=== PATIENT | female | born 1985 | race African-American/Black ===

== ENCOUNTER 2017-11-17 15:08 | Emergency (ER) | payer OTHER ==
[2017-11-17 15:21] VITALS: BP 123/82; PULSE 96; TEMP 99.6; BMI 45.6
--- NOTE | 2017-11-17 15:44 | PDOC ---
History of Present Illness - General Chief Complaint: Eye Problem Stated Complaint: Eye Problem Time Seen by Provider: 11/17/17 15:36 History Source: Patient Exam Limitations: Clinical Condition - History of Present Illness Initial Comments: 11/17/17 15:44 Patient with no significant past medical history present with complain of redness and left eye with discharge in left eye since yesterday. Denies blurry vision or change in vision. Denies contact lens use. She denies trauma injury to eye. Report no other symptoms Timing/Duration: 24 hours Past History - Past Medical History Allergies/Adverse Reactions: Allergies Allergy/AdvReac Type Severity Reaction Status Date / Time No Known Allergies Allergy Verified 11/17/17 15:18 Home Medications: Ambulatory Orders Metformin HCl [Glucophage] 1,000 mg PO BID 09/18/15 Aspirin Coated [Ecotrin -] 81 mg PO DAILY #30 tablet.ec 09/20/15 Atorvastatin Ca [Lipitor] 80 mg PO HS #60 tablet 09/20/15 Insulin (Novolog) [Novolog] See Protocol SQ ACHS #1 vial 09/20/15 Ofloxacin 0.3% Ophth Soln [Ocuflox -] 2 drop OP TID 5 Days #1 bottle 11/17/17 Asthma: No Cancer: No Cardiac Disorders: No COPD: No Diabetes: Yes (since 2010) HTN: Yes Seizures: No Thyroid Disease: No - Surgical History Abdominal Surgery: Yes - Reproductive History (#): 4 Para: 1 Cervical CA: No Dysfunctional Uterine Bleeding: No Ectopic : No Endometrial CA: No Polycystic Ovaries: No Therapeutic (s) & number: Yes (1) Tubal Ligation: No Spontaneous : 1 - Immunization History Immunization Up to Date: Yes - Suicide/Smoking/Psychosocial Hx Smoking Status: No Smoking History: Never smoked Have you smoked in the past 12 months: No Number of Cigarettes Smoked Daily: 0 Hx Alcohol Use: No Drug/Substance Use Hx: No Substance Use Type: None Hx Substance Use Treatment: No Review of Systems - Review of Systems Able to Perform ROS?: Yes Is the patient limited Setswana proficient: No Constitutional: No: Chills, Diaphoresis, Fever, Loss of Appetite, Malaise, Night Sweats, Weakness, Weight Stable, Unintentional Wgt. Loss, Unexplained wgt Loss, Other HEENTM: Yes: See HPI, Tearing, Other (redness in left eye). No: Eye Pain, Blurred Vision, Recent change in vision, Double Vision, Cataracts, Ear Pain, Ocular Prothesis, Ear Discharge, Nose Pain, Nose Congestion, Tinnitus, Nose Bleeding, Hearing Loss, Throat Pain, Throat Swelling, Mouth Pain, Dental Problems, Difficulty Swallowing, Mouth Swelling Respiratory: No: Cough, Orthopnea, Shortness of Breath, SOB with Exertion, SOB at Rest, Stridor, Wheezing, Productive cough, Hemoptysis, Other Cardiac (ROS): No: Chest Pain, Edema, Irregular Heart Rate, Lightheadedness, Palpitations, Syncope, Chest Tightness, Other ABD/GI: No: Abdominal Distended, Abd. Pain w/ defecation, Blood Streaked Bowels , Constipated, Diarrhea, Difficulty Swallowing, Nausea, Poor Appetite, Poor Fluid Intake, Rectal Bleeding, Vomiting, Indigestion, Abdominal cramping, Tarry Stools, Other Musculoskeletal: No: Back Pain, Gout, Joint Pain, Joint Swelling, Muscle Pain, Muscle Weakness, Neck Pain, Joint Stiffness, Other Integumentary: No: Bruising, Change in Color, Change in Hair/Nails, Dryness, Erythema, Flushing, Lesions, Lumps, Pallor, Pruritus, Rash, Sweating, Other Neurological: No: Headache, Numbness, Paresthesia, Pre-Existing Deficit, Seizure , Tingling, Tremors, Weakness, Unsteady Gait, Ataxia, Dizziness, Other All Other Systems: Reviewed and Negative *Physical Exam - Vital Signs Last Vital Signs Temp Pulse Resp BP Pulse Ox 99.6 F 96 H 20 123/82 100 11/17/17 15:18 11/17/17 15:18 11/17/17 15:18 11/17/17 15:18 11/17/17 15:18 - Physical Exam Comments: 11/17/17 15:46 GENERAL: Well developed, well nourished. Awake and alert. No acute distress. HEENT: Mildly injected left conjunctiva.Normocephalic, atraumatic. PERRLA, EOMI. No right conjunctival pallor. Sclera are non-icteric. Moist mucous membranes. Oropharynx is clear. NECK: Supple. Full ROM. No JVD. Carotid pulses 2+ and symmetric, without bruits. No thyromegaly. No lymphadenopathy. CARDIOVASCULAR: Regular rate and rhythm. No murmurs, rubs, or gallops. Distal pulses are 2+ and symmetric. PULMONARY: No evidence of respiratory distress. Lungs clear to auscultation bilaterally. No wheezing, rales or rhonchi. ABDOMINAL: Soft. Non-tender. Non-distended. No rebound or guarding. No organomegaly. Normoactive bowel sounds. MUSCULOSKELETAL Normal range of motion at all joints. No bony deformities or tenderness. No CVA tenderness. EXTREMITIES: No cyanosis. No clubbing. No edema. No calf tenderness. SKIN: Warm and dry. Normal capillary refill. No rashes. No jaundice. NEUROLOGICAL: Alert, awake, appropriate. Cranial nerves 2-12 intact. No deficits to light touch and temperature in face, upper extremities and lower extremities. No motor deficits in the in face, upper extremities and lower extremities. Normoreflexic in the upper and lower extremities. Normal speech. Toes are down- going bilaterally. Gait is normal without ataxia. PSYCHIATRIC: Cooperative. Good eye contact. Appropriate mood and affect. General Appearance: Yes: Nourished, Appropriately Dressed. No: Apparent Distress Medical Decision Making - Medical Decision Making 11/17/17 15:47 Patient with no significant past medical history present with complain of redness and left eyes since yesterday with discharge. Exam shows injected left conjunctiva consistent with conjunctivitis. Patient be treated with eyedrops for conjunctivitis with ophthalmology follow-up as needed *DC/Admit/Observation/Transfer Diagnosis at time of Disposition: Conjunctivitis Qualifiers: Conjunctivitis type: acute Acute conjunctivitis type: unspecified Laterality: left Qualified Code(s): H10.32 - Unspecified acute conjunctivitis, left eye - Discharge Dispostion Disposition: HOME Condition at time of disposition: Stable Decision to Admit order: No - Prescriptions Prescriptions: Ofloxacin 0.3% Ophth Soln [Ocuflox -] 2 drop OP TID 5 Days #1 bottle - Referrals Referrals: Veronica Martell MD [Staff Physician] - - Patient Instructions Printed Discharge Instructions: Conjunctivitis Additional Instructions: Use prescribed eye drops and left eye as prescribed. Keep hands clean and avoid rubbing right eye. Follow-up with referred ophthalmologists if no improvement in 3 days - Post Discharge Activity Forms/Work/School Notes: Back to Work
== END 2017-11-17 15:51 | disposition home or self-care (01) ==
LOC: JERFT 15:08
DX: H10.32 Unspecified acute conjunctivitis, left eye (principal); I10 Essential (primary) hypertension; E11.9 Type 2 diabetes mellitus without complications; Z79.4 Long term (current) use of insulin; Z79.84 Long term (current) use of oral hypoglycemic drugs; Z79.82 Long term (current) use of aspirin
CPT/HCPCS: 99281-25

== ENCOUNTER 2018-07-22 17:06 | Emergency (ER) | payer OTHER ==
--- NOTE | 2018-07-22 17:21 | PDOC ---
Rapid Medical Evaluation Chief Complaint: Pain Time Seen by Provider: 07/22/18 17:20 Medical Evaluation: Allergies Allergy/AdvReac Type Severity Reaction Status Date / Time No Known Allergies Allergy Verified 11/17/17 15:18 07/22/18 17:21 I have performed a brief in person evaluation at triage on this patient. CC: Right ear and throat pain HPI: Pt is a 33 YO female with right otalgia and right sided throat pain x 1 day. PE: Skin: clear Lungs: clear Heart: RRR MS: Moves all extremities without difficulty Neuro: Alert and oriented Psych: Appropriate affect I have ordered: RBS Pt will proceed to [facility] for further evaluation. Discharge Disposition - Diagnosis Pharyngitis Qualifiers: Pharyngitis/tonsillitis etiology: unspecified etiology Qualified Code(s): J02.9 - Acute pharyngitis, unspecified - Referrals - Patient Instructions - Post Discharge Activity
[2018-07-22 17:23] VITALS: PULSE 87; TEMP 98.6; BMI 45.6
[2018-07-22] MEDS ORDERED: KETOROLAC TROMETHAMINE 60 MG/2 ML VIAL IM ONE (17:47)
[2018-07-22] MEDS ORDERED: KETOROLAC TROMETHAMINE 60 MG/2 ML VIAL ONE (17:50)
[2018-07-22 17:57] VITALS: BP 152/110
--- NOTE | 2018-07-22 17:58 | PDOC ---
History of Present Illness - General Chief Complaint: Pain Stated Complaint: RT. EAR PAIN Time Seen by Provider: 07/22/18 17:20 History Source: Patient - History of Present Illness Timing/Duration: reports: yesterday Associated Symptoms: reports: fever/chills, sore throat. denies: cough Past History - Past Medical History Allergies/Adverse Reactions: Allergies Allergy/AdvReac Type Severity Reaction Status Date / Time No Known Allergies Allergy Verified 07/22/18 17:21 Home Medications: Ambulatory Orders Metformin HCl [Glucophage] 1,000 mg PO BID 09/18/15 Aspirin Coated [Ecotrin -] 81 mg PO DAILY #30 tablet.ec 09/20/15 Atorvastatin Ca [Lipitor] 80 mg PO HS #60 tablet 09/20/15 Insulin (Novolog) [Novolog] See Protocol SQ ACHS #1 vial 09/20/15 Ofloxacin 0.3% Ophth Soln [Ocuflox -] 2 drop OP TID 5 Days #1 bottle 11/17/17 Acetaminophen 1,000 mg PO Q6H #30 tablet 07/22/18 Amoxicillin - [Amoxicillin 500mg Capsule -] 500 mg PO BID #14 capsule 07/22/18 Asthma: No Cancer: No Cardiac Disorders: No COPD: No Diabetes: Yes (since 2010) HTN: Yes Seizures: No Thyroid Disease: No - Surgical History Abdominal Surgery: Yes - Reproductive History (#): 4 Para: 1 Cervical CA: No Dysfunctional Uterine Bleeding: No Ectopic : No Endometrial CA: No Polycystic Ovaries: No Therapeutic (s) & number: Yes (1) Tubal Ligation: No Spontaneous : 1 - Immunization History Immunization Up to Date: Yes - Suicide/Smoking/Psychosocial Hx Smoking Status: No Smoking History: Never smoked Have you smoked in the past 12 months: No Number of Cigarettes Smoked Daily: 0 Hx Alcohol Use: No Drug/Substance Use Hx: No Substance Use Type: None Hx Substance Use Treatment: No Review of Systems - Review of Systems Constitutional: No: Chills, Fever HEENTM: Yes: Ear Pain, Throat Pain Respiratory: No: Cough *Physical Exam - Vital Signs Last Vital Signs Temp Pulse Resp BP Pulse Ox 98.6 F 87 18 197/115 H 100 07/22/18 17:21 07/22/18 17:21 07/22/18 17:21 07/22/18 17:21 07/22/18 17:21 - Physical Exam General Appearance: Yes: Appropriately Dressed, Moderate Distress HEENT: positive: Normal Voice, TMs Normal, Other (R tonsillar enlargement, no exudates). negative: Scleral Icterus (R), Scleral Icterus (L) Neck: positive: Supple. negative: Lymphadenopathy (R), Lymphadenopathy (L) Respiratory/Chest: negative: Respiratory Distress Integumentary: positive: Dry, Warm Neurologic: positive: Fully Oriented, Alert, Normal Mood/Affect Medical Decision Making - Medical Decision Making 07/22/18 17:42 33 yo morbidly obesed female, ?HTN (on lisinopril but states meds was given to her to prevent kidney dze from her DM), here w/ severe throat pain w/ dysphagia x 2 days. No cough, f/c. No sick contacts. 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 Rpt BP now 150/90 after pain control. Will dc w/ abx. Pt to f/u with PMD for BP management *DC/Admit/Observation/Transfer Diagnosis at time of Disposition: Elevated blood pressure reading Pharyngitis Qualifiers: Pharyngitis/tonsillitis etiology: unspecified etiology Qualified Code(s): J02.9 - Acute pharyngitis, unspecified - Discharge Dispostion Disposition: HOME Condition at time of disposition: Improved - Prescriptions Prescriptions: Acetaminophen 1,000 mg PO Q6H #30 tablet Amoxicillin - [Amoxicillin 500mg Capsule -] 500 mg PO BID #14 capsule - Referrals Referrals: Dominique Joseph MD [Primary Care Provider] - - Patient Instructions Printed Discharge Instructions: Strep Throat Additional Instructions: Take medications as directed Please follow up with your PMD regarding your blood pressure - Post Discharge Activity
== END 2018-07-22 19:06 | disposition home or self-care (01) ==
LOC: JER 17:06
PROC: 3E0233Z Introduction of Anti-inflammatory into Muscle, Percutaneous Approach (ICD-10-PCS; principal; 2018-07-22)
DX: J02.9 Acute pharyngitis, unspecified (principal); I10 Essential (primary) hypertension; E11.9 Type 2 diabetes mellitus without complications; Z79.4 Long term (current) use of insulin
CPT/HCPCS: 87880; 96372; 99281-25

== ENCOUNTER 2019-03-09 10:03 | Inpatient (IN) | payer OTHER ==
[2019-03-05 11:42] VITALS: BMI 45.1
[~2019-03-09 10:03] MED LIST: BUPIVACAINE HCL/PF 0.5% (5 MG/ML) 30 ML VIAL IJ ONE
--- NOTE | 2019-03-09 10:52 | HP ---
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 Home Medications - Allergies Allergies/Adverse Reactions: Allergies Allergy/AdvReac Type Severity Reaction Status Date / Time No Known Drug Allergies Allergy Verified 03/05/19 11:29 - Home Medications Home Medications: Ambulatory Orders Metformin HCl [Glucophage] 1,000 mg PO BID 09/18/15 Aspirin Coated [Ecotrin -] 81 mg PO DAILY #30 tablet.ec 09/20/15 Atorvastatin Ca [Lipitor] 40 mg PO HS 03/05/19 Insulin Glargine,Hum.rec.anlog [Basaglar Kwikpen U-100] 15 unit SQ HS 03/05/19 Lisinopril 20 mg PO DAILY 03/05/19 Family Medical History Family History: Denies Review of Systems - Review of Systems Constitutional: denies: Chills, Fever Neck: reports: No Symptoms Cardiovascular: reports: No Symptoms Respiratory: reports: No Symptoms Gastrointestinal: reports: No Symptoms Neurological: reports: No Symptoms Physical Examination Constitutional: Yes: Calm Cardiovascular: Yes: WNL Respiratory: Yes: WNL Gastrointestinal: Yes: WNL, Soft, Abdomen, Obese Neurological: Yes: Alert, Oriented Problem List - Problems (1) Morbid obesity due to excess calories Code(s): E66.01 - MORBID (SEVERE) OBESITY DUE TO EXCESS CALORIES (2) Diabetes mellitus type 2 in obese Code(s): E11.69 - TYPE 2 DIABETES MELLITUS WITH OTHER SPECIFIED COMPLICATION; E66.9 - OBESITY, UNSPECIFIED (3) Hypertension Code(s): I10 - ESSENTIAL (PRIMARY) HYPERTENSION Qualifiers: Hypertension type: unspecified Qualified Code(s): I10 - Essential (primary ) hypertension (4) BMI 45.0-49.9, adult Code(s): Z68.42 - BODY MASS INDEX (BMI) 45.0-49.9, ADULT (5) TIA (transient ischemic attack) Code(s): G45.9 - TRANSIENT CEREBRAL ISCHEMIC ATTACK, UNSPECIFIED Qualifiers: Transient cerebral ischemia type: unspecified Qualified Code(s): G45.9 - Transient cerebral ischemic attack, unspecified Assessment/Plan Laparoscopic possible open vertical sleeve gastrectomy possible liver biopsy, upper endoscopy
[2019-03-09] MEDS ORDERED: MIDAZOLAM HCL 2 MG/2 ML SINGLE DOSE VIAL ONE (13:44)
[2019-03-09] MEDS ORDERED: ROPIVACAINE HCL 0.5% 30ML VIAL ONE (13:44)
[2019-03-09] MEDS ORDERED: ceFAZolin SODIUM 1 GM VIAL IVPB ONE (14:07)
[2019-03-09] MEDS ORDERED: BUPIVACAINE HCL 0.25% 125 MG/50 ML VIAL ONE (14:41)
[2019-03-09] MEDS ORDERED: BUPIVACAINE HCL/PF 0.5% (5 MG/ML) 30 ML VIAL IJ ONE (15:56)
[2019-03-09] MEDS ORDERED: HYDROmorphone HCL CARPU-JECT 1 MG/1 ML DISP.SYRIN IVPB PRN (16:07)
--- NOTE | 2019-03-09 16:07 | OPR ---
Operative Note Operative Date: 03/09/19 Pre-Operative Diagnosis: Morbid obesity; BMI 45.2 Operation: 1. Diagnostic laparoscopy. 2. Laparoscopic vertical sleeve gastrectomy. 3. Laparoscopic wedge liver biopsy. 4. Laparoscopic oversewing of gastric staple line Post-Operative Diagnosis: Same as Pre-op (as well as hepatomegaly and oozing from gastric staple line) Surgeon: Tulio Hernandez Defense Attorney: Taj Jacobson Anesthesia: General Specimens Removed: Greater curvature of stomach. Liver biopsy. Estimated Blood Loss (mls): 30 Drains & Tubes with Location: 36 Fr Bougie Operative Report Dictated: Yes
[2019-03-09] MEDS ORDERED: SODIUM CHLORIDE 1,000 ML IV SCH (16:15)
[2019-03-09] MEDS: ACETAMINOPHEN 1000 MG/100 ML VIAL (NON FORMULARY) IVPB SCH ×2 (16:25→22:24)
[2019-03-09 16:34] LABS: HEMATOCRIT 33.9 % (32.4-45.2); HEMOGLOBIN 10.8 GM/dl (10.7-15.3); MCH 24.1 pg (25.7-33.7); MCHC 31.8 g/dl (32.0-36.0); MEAN CELL VOLUME 75.8 fl (80-96); MEAN PLT VOLUME 8.1 fl (7.5-11.1); PLATELET COUNT 342 K/MM3 (134-434); RBC 4.47 M/mm3 (3.60-5.2); RDW 17.6 % (11.6-15.6)
[2019-03-09] MEDS: ONDANSETRON 4 MG/2 ML VIAL IVPUSH SCH ×2 (16:40→22:24)
[2019-03-09] MEDS ORDERED: FAMOTIDINE 20 MG PREMIXED IVPB IVPB ONE (16:40)
[2019-03-09] MEDS: METOCLOPRAMIDE HCL INJECTION 10 MG/2 ML VIAL IVPUSH SCH ×2 (16:40→22:24)
[2019-03-09 16:57] LABS: ALBUMIN 3.1 g/dl (3.4-5.0); BILIRUBIN,TOTAL 0.7 mg/dl (0.2-1); CALCIUM 8.4 mg/dl (8.5-10); CREATININE 0.6 mg/dl (0.55-1.3); POTASSIUM 3.9 mmol/L (3.5-5.1); TOT PROT 6.2 g/dl (6.4-8.2)
[2019-03-09] MEDS ORDERED: LACTATED RINGERS SOLUTION 1,000 ML IV SCH (17:15)
[2019-03-09] MEDS ORDERED: hydrALAZINE HCL 20 MG/ML VIAL ONE (17:23)
[2019-03-09] MEDS ORDERED: hydrALAZINE HCL 20 MG/ML VIAL IVPUSH ONE (17:36)
[2019-03-09] MEDS: INSULIN SLIDING SCALE (NOVOLOG) 1 VIAL SQ SCH ×2 (19:03→19:19)
--- NOTE | 2019-03-09 19:04 | SPEC ---
DATE OF OPERATION: 03/09/2019 PLACE OF SERVICE: [facility], [address] [place] [address] SURGEON: Tulio Hernandez MD INHALATION THERAPY AIDE: Taj Jacobson MD PREOPERATIVE DIAGNOSES: 1. Morbid obesity. 2. Body mass index of 45.2. POSTOPERATIVE DIAGNOSES: 1. Morbid obesity. 2. Body mass index of 45.2. 3. Hepatomegaly. 4. Oozing from gastric staple line. PROCEDURES: 1. Diagnostic laparoscopy. 2. Laparoscopic vertical sleeve gastrectomy. 3. Laparoscopic wedge liver biopsy. 4. Laparoscopic over sewing of gastric staple line for oozing. SPECIMENS: 1. Greater curvature of the stomach. 2. Liver biopsy. ESTIMATED BLOOD LOSS: 30 mL. DRAIN: None. ANESTHESIA: GET. BOUGIE SIZE: 36-[place]ian. REASON FOR PROCEDURE: This 33-year-old female presents for weight loss options. After describing different options, she decided to proceed with laparoscopic, possible open, vertical sleeve gastrectomy, possible liver biopsy, upper endoscopy. The patient was seen by the respective subspecialties and cleared for surgery. The risks and benefits of the procedure were explained. These included bleeding, infection, hernia, [place], DVT, PE, injury to surrounding structures including the liver, colon, bowel, spleen, esophagus, vessel injury, nerve injury, weight regain, gastric leak, staple line leak, sleeve leak, obstruction, vitamin deficiency, hair loss and as some of the possible complications. The patient understood and signed informed consent. DESCRIPTION OF PROCEDURE: The patient was placed supine on the operating room table. The patient underwent general endotracheal intubation. The arms were brought out at 90 degrees and secured. A footboard was placed and the legs were secured laterally with padding. The abdomen was prepped and draped in the usual sterile fashion. A timeout was performed. An incision was made in the left upper quadrant and a Veress needle inserted. Pneumoperitoneum was established. Subsequently, the Veress needle was removed and a 5-mm trocar was placed under direct visualization with the laparoscope. The laparoscopic camera was then inserted and inspection of the abdominal cavity was performed. An incision was then made in the supraumbilical area and a 15-mm trocar was placed under direct visualization. A 5-mm trocar was then placed in the right upper quadrant and a 5-mm trocar was placed below the left subcostal margin. A stab wound was made in the subxiphoid area and a Sophia clamp inserted and removed to dilate the tract. A Ayden liver retractor was inserted. The post was secured at the bedside by the nursing staff. The patient was placed in steep reverse Trendelenburg position and the Ayden liver retractor was used to secure the liver towards the anterior abdominal wall. The pylorus was identified and 6 cm proximal to it, the lesser sac was entered using the LigaSure device. All lateral attachments to the greater curvature of the stomach, including the short gastric vessels, were ligated using the LigaSure device toward the gastrosplenic and gastrophrenic ligaments. Once this was done in its entirety, it was confirmed that all tubes within the nasal or oropharyngeal cavity, including a temperature probe were removed by Anesthesia. The bougie was then inserted by Anesthesia. Transection of the stomach was then begun staying adjacent to the bougie but away from the angularis. Transection of the stomach was performed near the portion of the stomach where the lesser sac was entered. Two laparoscopic Endo-ANH black larissa were used at this location. Laparoscopic Endo ANH purple staple loads were then used for the remainder of the transection until the greater curvature of the stomach was fully transected. This was done staying close to the bougie. Care was taken to stay away from the angle of His cephalad. The staple line was then inspected. Hemostasis was identified. A leak test was then performed. It was clamped distally to the staple line. Irrigation solution was placed in the left upper quadrant and air was insufflated by Anesthesia into the sleeve. No leaks were identified. No obstruction was identified. This was done through the entirety of the staple line. The stomach was suctioned and the bougie removed fully intact under direct visualization. At this point, the irrigation solution was suctioned and again, hemostasis was noted. A wedge liver biopsy was then performed. The left lobe of the liver was identified. A portion of the edge of the left lobe of the liver was grasped. Using electrocautery, a wedge of the left liver was excised. The specimen was removed and sent off the field. Hemostasis of the wedge liver biopsy site was attained and noted using electrocautery. The 15-mm supraumbilical trocar was then removed and the greater curvature specimen removed from the site using a sponge stick menezes. A Logan-Donald device was then used to close the fascia with a 0 Vicryl suture at the site. Again, hemostasis was noted. Please note that because of oozing at the gastric staple line, the staple line was over sewn with an Endo Stitch using a Surgitek suture. Hemostasis was noted. The Ayden liver retractor was then removed under direct visualization. Pneumoperitoneum was desufflated. Hemostasis was noted at all incision sites and Marcaine was injected at all incision sites. A 3-0 Vicryl suture was used to close the deep subcutaneous tissue at the 15-mm incision site. All incision sites were closed using 4-0 Biosyn. Sterile dressings were applied. The patient tolerated the procedure well and was transferred to the recovery room in stable condition. Bucky [id number]
[2019-03-09] MEDS: ENOXAPARIN NA (PORCINE) 40 MG/0.4 ML DISP.SYRIN SQ SCH (22:24)
[2019-03-09] MEDS: FAMOTIDINE 20 MG/50 ML IVPB 20 MG/50 ML MG IVPB SCH (22:25)
[2019-03-09 22:47] VITALS: PULSE 106
[2019-03-10] MEDS: ONDANSETRON 4 MG/2 ML VIAL IVPUSH SCH ×3 (00:35→09:30)
[2019-03-10] MEDS: ACETAMINOPHEN 1000 MG/100 ML VIAL (NON FORMULARY) IVPB SCH ×2 (03:53→10:00)
[2019-03-10] MEDS: METOCLOPRAMIDE HCL INJECTION 10 MG/2 ML VIAL IVPUSH SCH ×2 (03:53→10:30)
[2019-03-10 06:40] VITALS: BP 147/87; TEMP 98.8
[2019-03-10] MEDS: INSULIN SLIDING SCALE (NOVOLOG) 1 VIAL SQ SCH ×2 (06:52→12:33)
[2019-03-10 08:08] LABS: HEMATOCRIT 36.1 % (32.4-45.2); HEMOGLOBIN 11.9 GM/dl (10.7-15.3); MCHC 33.1 g/dl (32.0-36.0); MEAN CELL VOLUME 75.5 fl (80-96); MEAN PLT VOLUME 8.4 fl (7.5-11.1); PLATELET COUNT 387 K/MM3 (134-434); RBC 4.78 M/mm3 (3.60-5.2); RDW 17.3 % (11.6-15.6); WHITE BLOOD COUNT 10.5 K/mm3 (4.0-10.8)
--- NOTE | 2019-03-10 08:11 | DS ---
Physical Exam: SUBJECTIVE: Patient seen and examined OBJECTIVE: Vital Signs Temperature 98.8 F 03/10/19 06:00 Pulse Rate 106 H 03/10/19 06:00 Respiratory Rate 18 03/10/19 06:00 Blood Pressure 147/87 03/10/19 06:00 O2 Sat by Pulse Oximetry (%) 98 03/10/19 06:00 PHYSICAL EXAM GENERAL: The patient is awake, alert, and fully oriented, in no acute distress. HEAD: Normal with no signs of trauma. EYES: PERRL, extraocular movements intact, sclera anicteric, conjunctiva clear. ENT: Ears normal, nares patent, oropharynx clear without exudates, moist mucous membranes. NECK: Trachea midline, full range of motion, supple. LUNGS: breathing comfortably, no accessory muscle use. ABDOMEN: Soft, mild diffuse tenderness, nondistended, no guarding, no rebound, no hepatosplenomegaly, no masses. Incisions are clean with no erythema or discharge. EXTREMITIES: warm, well-perfused, no edema. NEUROLOGICAL: Cranial nerves II through XII grossly intact. Normal speech, gait not observed. PSYCH: Normal mood, normal affect. SKIN: Warm, dry, normal turgor, no rashes or lesions noted. LABS CBC,CMP WBC 14.0 K/mm3 (4.0-10.8) H 03/09/19 16:25 RBC 4.47 M/mm3 (3.60-5.2) 03/09/19 16:25 Hgb 10.8 GM/dl (10.7-15.3) 03/09/19 16:25 Hct 33.9 % (32.4-45.2) 03/09/19 16:25 MCV 75.8 fl (80-96) L 03/09/19 16:25 MCH 24.1 pg (25.7-33.7) L 03/09/19 16:25 MCHC 31.8 g/dl (32.0-36.0) L 03/09/19 16:25 RDW 17.6 % (11.6-15.6) H 03/09/19 16:25 Plt Count 342 K/MM3 (134-434) 03/09/19 16:25 MPV 8.1 fl (7.5-11.1) 03/09/19 16:25 Sodium 132 mmol/L (136-145) L 03/09/19 16:25 Potassium 3.9 mmol/L (3.5-5.1) 03/09/19 16:25 Chloride 102 mmol/L (98-107) 03/09/19 16:25 Carbon Dioxide 22 mmol/L (21-32) 03/09/19 16:25 Anion Gap 8 MMOL/L (8-16) 03/09/19 16:25 BUN 10.0 mg/dl (7-18) 03/09/19 16:25 Creatinine 0.6 mg/dl (0.55-1.3) 03/09/19 16:25 Est GFR (CKD-EPI)AfAm 137.83 03/09/19 16:25 Est GFR (CKD-EPI)NonAf 118.92 03/09/19 16:25 POC Glucometer 267 UNITS (80-120) 03/10/19 06:00 Random Glucose 283 mg/dl (74-106) H 03/09/19 16:25 Calcium 8.4 mg/dl (8.5-10) L 03/09/19 16:25 Total Bilirubin 0.7 mg/dl (0.2-1) 03/09/19 16:25 AST 29 U/L (15-37) 03/09/19 16:25 ALT 22 U/L (13-61) 03/09/19 16:25 Alkaline Phosphatase 84 U/L (45-117) 03/09/19 16:25 Total Protein 6.2 g/dl (6.4-8.2) L 03/09/19 16:25 Albumin 3.1 g/dl (3.4-5.0) L 03/09/19 16:25 HOSPITAL COURSE: Date of Admission:03/09/19 Date of Discharge: 03/10/19 HOSPITAL COURSE: The patient was admitted to the Med-Surg Unit after elective bariatric surgery. Now, s/p laparoscopic vertical sleeve gastrectomy. The day of surgery, the patient ambulated the hallways with assistance. The patient was monitored with remote tele/continuous pulse ox. Narcotic and non-narcotic pain management control was achieved with oral and IV pain control. Upper GI series was obtained the following morning and no leak, extravastion or gastric outlet obstruction. Started on a Bariatric Stage 1 diet and tolerated well. Anastasiia-operative IV ABX were administered in addition to GI prophylaxis. DVT prophylaxis was achieved with SCDs and early ambulation. The discharge instructions and an oral pain management plan were reviewed with the patient. All questions answered. Above plan discussed with Dr. Hernandez and agreed. Minutes to complete discharge: 20 Visit type - Case Type Case Type: Scheduled - Emergency Emergency Visit: No - New patient This patient is new to me today: Yes Date on this admission: 03/10/19 - Critical Care Critical Care patient: No
[2019-03-10 08:15] LABS: ALBUMIN 3.5 g/dl (3.4-5.0); CALCIUM 8.7 mg/dl (8.5-10); CREATININE 0.7 mg/dl (0.55-1.3); POTASSIUM 4.2 mmol/L (3.5-5.1); TOT PROT 7.4 g/dl (6.4-8.2)
[2019-03-10] MEDS: FAMOTIDINE 20 MG/50 ML IVPB 20 MG/50 ML MG IVPB SCH (10:00)
[2019-03-10] MEDS: ENOXAPARIN NA (PORCINE) 40 MG/0.4 ML DISP.SYRIN SQ SCH (10:33)
--- NOTE | 2019-03-12 17:28 | PATH ---
Surgical Pathology Report Patient Name: JAMAAL ROMO Med. Rec. #: [id number] /Age/Gender: 1985 (Age: 33) / F Account: [id number] [facility] Taken: 03/09/2019 Received: 03/09/2019 Reported: 03/12/2019 Physicians: Tulio Hernandez M.D. Specimen(s) Received A: GREATER CURVATURE STOMACH B: LIVER BIOPSY Clinical History Morbid obesity Final Diagnosis A. GREATER CURVATURE STOMACH, LAPAROSCOPIC VERTICAL SLEEVE GASTRECTOMY: SEGMENT OF STOMACH SHOWING ACTIVE CHRONIC GASTRITIS. IMMUNOSTAINING IS POSITIVE FOR MANY H. PYLORI ORGANISMS. B. LIVER, BIOPSY: LIVER TISSUE WITH MILD STEATOSIS (5%), FOCAL. NO HISTOLOGIC EVIDENCE OF HEPATITIS. NO INCREASE IN FIBROSIS (TRICHROME STAIN) OR IRON (IRON STAIN) DEPOSITION. Electronically Signed Laurel Mckinley M.D. Gross Description A. Received in formalin, labeled "greater curvature of the stomach," is a 101 gram, 20.0 x 3.0 x 2.2 cm. portion of stomach with a stapled margin of resection. The serosa is pederson-reyes with minimal attached fat. The mucosa is pederson-pink with normal folds. No mucosal masses are identified. Macroeconomics Professor sections are submitted in one cassette. B. Received in formalin labeled "liver biopsy," is a 2.8 x 1.2 x 0.9 cm pederson portion of soft tissue, consistent with a liver biopsy. The specimen is sectioned and hospital sales representative sections are submitted in one cassette. 03/11/2019 saudi03/11/2019
== END 2019-03-10 13:30 | disposition home or self-care (01) | DRG 403 ==
LOC: FM/S 10:03
PROVIDERS: ADMIT Surgery; ATTEND Surgery
PROC: 0DJ04ZZ Inspection of Upper Intestinal Tract, Percutaneous Endoscopic Approach (ICD-10-PCS; 2019-03-09)
PROC: 0DB64Z3 Excision of Stomach, Percutaneous Endoscopic Approach, Vertical (ICD-10-PCS; principal; 2019-03-09 11:00)
PROC: 0FB20ZX Excision of Left Lobe Liver, Open Approach, Diagnostic (ICD-10-PCS; 2019-03-09 11:00)
DX: E66.01 Morbid (severe) obesity due to excess calories (principal); Z68.41 Body mass index [BMI] 40.0-44.9, adult; I10 Essential (primary) hypertension; E11.9 Type 2 diabetes mellitus without complications; G45.9 Transient cerebral ischemic attack, unspecified; R16.0 Hepatomegaly, not elsewhere classified
CPT/HCPCS: 36415; 74241-TC-FY; 80053; 82962; 84703; 85027; 86803; 94760; J0131; J7030

== ENCOUNTER 2022-01-23 20:33 | Emergency (ER) | payer OTHER ==
[2022-01-23 20:42] VITALS: RESP 18; TEMP 98.2; BMI 42.5
[2022-01-23] MEDS ORDERED: AMOX TR/POT CLAV 875MG/125MG TABLETS (FP) PO ONE (21:00)
[2022-01-23] MEDS ORDERED: KETOROLAC TROMETHAMINE 30 MG/1 ML VIAL IM ONE (21:00)
[2022-01-23] MEDS ORDERED: AMOX TR/POT CLAV 875MG/125MG TABLETS (FP) ONE (21:02)
[2022-01-23] MEDS ORDERED: KETOROLAC TROMETHAMINE 30 MG/1 ML VIAL ONE (21:02)
[2022-01-23 21:46] VITALS: BP 145/79; PULSE 72
== END 2022-01-23 22:14 | disposition home or self-care (01) ==
LOC: JERFT 20:33
PROC: 3E0233Z Introduction of Anti-inflammatory into Muscle, Percutaneous Approach (ICD-10-PCS; principal; 2022-01-23)
DX: H66.91 Otitis media, unspecified, right ear (principal); G44.89 Other headache syndrome
CPT/HCPCS: 99284-25

== ENCOUNTER 2022-04-06 00:47 | Emergency (ER) | payer OTHER ==
[2022-04-06 02:22] VITALS: BP 125/84; PULSE 89; RESP 20; TEMP 97.6; BMI 42.5
== END 2022-04-06 02:51 | disposition home or self-care (01) ==
LOC: JER 00:47
DX: M25.562 Pain in left knee (principal)
CPT/HCPCS: 73560-TC-LT-FY; 99283-25

== ENCOUNTER 2023-02-18 08:04 | Emergency (ER) | payer OTHER ==
[2023-02-18 08:19] VITALS: BP 134/67; PULSE 80; RESP 18; TEMP 98; BMI 44.1
[2023-02-18] MEDS ORDERED: IBUPROFEN 400 MG TABLET (FP) PO ONE ×2 (08:40→08:49)
== END 2023-02-18 10:00 | disposition home or self-care (01) ==
LOC: JER 08:04
DX: H92.01 Otalgia, right ear (principal); R50.9 Fever, unspecified; J02.9 Acute pharyngitis, unspecified; R05.9 Cough, unspecified; Z20.822 Contact with and (suspected) exposure to COVID-19
CPT/HCPCS: 0241U-QW; 99283-25

== ENCOUNTER 2023-07-16 08:17 | Emergency (ER) | payer OTHER ==
[2023-07-16 08:23] VITALS: BP 160/92; PULSE 98; RESP 20; TEMP 98.4; BMI 42.8
[2023-07-16] MEDS: IBUPROFEN 600 MG TABLET (FP) PO ONE (09:25)
[2023-07-16] MEDS: METOCLOPRAMIDE HCL 10 MG TABLET (FP) PO ONE (09:30)
[2023-07-16] MEDS ORDERED: IBUPROFEN 600 MG TABLET (FP) PO ONE (09:32)
[2023-07-16] MEDS ORDERED: METOCLOPRAMIDE HCL 10 MG TABLET (FP) PO ONE (09:32)
[2023-07-16 11:21] LABS: PH,URINE 5.5 (5.0-8.0); URINE APPEARANCE CLEAR; URINE BILIRUBIN NEGATIVE (NEGATIVE); URINE COLOR YELLOW; URINE GLUCOSE (UA) 2+ (NEGATIVE); URINE KETONE TRACE (NEGATIVE); URINE LEUK ESTERASE NEGATIVE (NEGATIVE); URINE NITRITE NEGATIVE (NEGATIVE); URINE PROTEIN TRACE (NEGATIVE)
[2023-07-16 11:24] LABS: HCG,QUALITATIVE URINE Negative
== END 2023-07-16 11:53 | disposition home or self-care (01) ==
LOC: JER 08:17
DX: R50.9 Fever, unspecified (principal); B34.9 Viral infection, unspecified; R51.9 Headache, unspecified; M79.10 Myalgia, unspecified site; Z20.822 Contact with and (suspected) exposure to COVID-19
CPT/HCPCS: 0241U-QW; 81003; 84703; 99283-25

== ENCOUNTER 2023-07-25 01:11 | Emergency (ER) | payer OTHER ==
[2023-07-25 01:24] VITALS: BP 138/87; PULSE 94; RESP 18; TEMP 99.5; BMI 44.1
[2023-07-25] MEDS ORDERED: LIDOCAINE 4% PATCH TP ONE (01:50)
[2023-07-25] MEDS ORDERED: ACETAMINOPHEN 500 MG TABLET (FP) ONE (01:50)
[2023-07-25] MEDS: ACETAMINOPHEN 500 MG TABLET (FP) PO ONE (02:02)
[2023-07-25] MEDS: LIDOCAINE 5% TOPICAL PATCH TP ONE (02:03)
[2023-07-25] MEDS ORDERED: KETOROLAC TROMETHAMINE 30 MG/1 ML VIAL ONE (02:47)
[2023-07-25] MEDS: KETOROLAC TROMETHAMINE 30 MG/1 ML VIAL IM ONE (02:53)
[2023-07-25] MEDS ORDERED: LIDOCAINE PATCH REMOVAL MC SCH (22:00)
== END 2023-07-25 04:15 | disposition home or self-care (01) ==
LOC: JER 01:11
PROC: 3E023GC Introduction of Other Therapeutic Substance into Muscle, Percutaneous Approach (ICD-10-PCS; principal; 2023-07-25)
DX: M25.562 Pain in left knee (principal)
CPT/HCPCS: 84703; 99284-25

== ENCOUNTER 2023-07-25 19:38 | Emergency (ER) | payer OTHER ==
[2023-07-25 19:44] VITALS: BMI 44.1
[2023-07-25] MEDS ORDERED: KETOROLAC TROMETHAMINE 30 MG/1 ML VIAL ONE (20:18)
[2023-07-25] MEDS ORDERED: ACETAMINOPHEN 325 MG TABLET (FP) ONE ×2 (20:18→22:26)
[2023-07-25] MEDS: KETOROLAC TROMETHAMINE 30 MG/1 ML VIAL IM ONE (20:29)
[2023-07-25] MEDS: ACETAMINOPHEN 500 MG TABLET (FP) PO ONE (20:29)
[2023-07-25 22:09] LABS: BASO % 0.7 % (0-2.0); HEMATOCRIT 31.4 % (32.4-45.2); HEMOGLOBIN 10.1 GM/dL (10.7-15.3); LYMPH % 16.4 % (8-40); MCH 21.6 pg (25.7-33.7); MCHC 32.1 g/dl (32.0-36.0); MEAN CELL VOLUME 67.4 fl (80-96); MEAN PLT VOLUME 6.4 fl (7.5-11.1); MONO % 6.2 % (3.8-10.2); NEUT % 76.7 % (42.8-82.8); PLATELET COUNT 413 10^3/uL (134-434); RBC 4.66 M/mm3 (3.60-5.2); RDW 20.9 % (11.6-15.6); WHITE BLOOD COUNT 8.9 K/mm3 (4.0-10.0)
[2023-07-25 22:21] LABS: POTASSIUM 4.4 mmol/L (3.5-5.1)
[2023-07-25 22:22] LABS: CALCIUM 8.7 mg/dL (8.5-10.1)
[2023-07-25 22:23] LABS: BLOOD UREA NITROGEN 9.7 mg/dL (7-18)
[2023-07-25 22:26] LABS: CREATININE 0.7 mg/dL (0.55-1.3)
[2023-07-25 22:40] LABS: ANISOCYTOSIS 2+; MACROCYTOSIS 0; OVALOCYTE 1+
[2023-07-25] MEDS: ACETAMINOPHEN 325 MG TABLET (FP) PO ONE (22:40)
[2023-07-25] MEDS ORDERED: oxyCODONE HCL 5 MG TABLET ONE (23:33)
[2023-07-25] MEDS: oxyCODONE HCL 5 MG TABLET PO ONE (23:37)
[2023-07-26 00:49] VITALS: BP 137/89; PULSE 103; RESP 17; TEMP 98.6
== END 2023-07-26 01:32 | disposition home or self-care (01) ==
LOC: JER 19:38
PROC: 3E023GC Introduction of Other Therapeutic Substance into Muscle, Percutaneous Approach (ICD-10-PCS; principal; 2023-07-25)
DX: M25.462 Effusion, left knee (principal); M25.562 Pain in left knee; M79.662 Pain in left lower leg
CPT/HCPCS: 36415; 73562-TC-LT-FY; 80048; 85025; 86140; 93971-TC; 99285-25

== ENCOUNTER 2023-08-04 12:28 | Emergency (ER) | payer OTHER ==
[2023-08-04 12:31] VITALS: BP 147/78; PULSE 113; RESP 18; TEMP 97.8; BMI 44.1
[2023-08-04] MEDS ORDERED: ACETAMINOPHEN 325 MG TABLET (FP) ONE (13:34)
[2023-08-04] MEDS ORDERED: KETOROLAC TROMETHAMINE 30 MG/1 ML VIAL ONE (13:34)
[2023-08-04] MEDS: KETOROLAC TROMETHAMINE 30 MG/1 ML VIAL IM ONE (13:43)
[2023-08-04] MEDS: ACETAMINOPHEN 325 MG TABLET (FP) PO ONE (13:44)
== END 2023-08-04 15:14 | disposition home or self-care (01) ==
LOC: JER 12:28
PROC: 3E023GC Introduction of Other Therapeutic Substance into Muscle, Percutaneous Approach (ICD-10-PCS; principal; 2023-08-04)
DX: M66.0 Rupture of popliteal cyst (principal); M79.662 Pain in left lower leg; M79.89 Other specified soft tissue disorders
CPT/HCPCS: 93971-LT; 93971-TC; 99284-25

== ENCOUNTER 2023-08-04 19:01 | Emergency (ER) | payer OTHER ==
[2023-08-04 19:33] VITALS: RESP 18; BMI 30.4
[2023-08-04 19:57] LABS: BASO % 0.2 % (0-2.0); EOS % 0.2 % (0-4.5); HEMATOCRIT 30.2 % (32.4-45.2); HEMOGLOBIN 9.8 GM/dL (10.7-15.3); LYMPH % 19.5 % (8-40); MCH 21.6 pg (25.7-33.7); MCHC 32.6 g/dl (32.0-36.0); MEAN CELL VOLUME 66.3 fl (80-96); MONO % 11.6 % (3.8-10.2); NEUT % 68.5 % (42.8-82.8); PLATELET COUNT 608 10^3/uL (134-434); RBC 4.55 M/mm3 (3.60-5.2); WHITE BLOOD COUNT 6.7 K/mm3 (4.0-10.0)
[2023-08-04 20:22] LABS: BLOOD UREA NITROGEN 13.6 mg/dL (7-18); CALCIUM 9.3 mg/dL (8.5-10.1)
[2023-08-04 21:21] LABS: ANISOCYTOSIS 2+; OVALOCYTE 2+
[2023-08-04 21:22] LABS: PLATELET ESTIMATE INCREASED
[2023-08-04] MEDS ORDERED: oxyCODONE HCL 5 MG TABLET ONE (21:54)
[2023-08-04] MEDS: oxyCODONE HCL 5 MG TABLET PO ONE (21:58)
[2023-08-04 22:58] VITALS: BP 118/72; PULSE 98; TEMP 97.8
== END 2023-08-05 01:25 | disposition home or self-care (01) ==
LOC: JER 19:01
DX: M71.22 Synovial cyst of popliteal space [Baker], left knee (principal)
CPT/HCPCS: 36415; 76882-TC-RT-FY; 80048; 84703; 85025; 99284-25

== ENCOUNTER 2024-03-18 01:49 | Inpatient (IN) | payer OTHER ==
[2024-03-18] MEDS ORDERED: ACETAMINOPHEN 325 MG TABLET (FP) ONE (02:35)
[2024-03-18] MEDS: ACETAMINOPHEN 500 MG TABLET (FP) PO ONE (02:38)
[2024-03-18] MEDS: LACTATED RINGERS SOLUTION 1000 ML INFUS.BAG IV ONE (02:57)
[2024-03-18 03:07] LABS: PH,URINE 5.5 (5.0-8.0); URINE APPEARANCE CLEAR; URINE BILIRUBIN NEGATIVE (NEGATIVE); URINE COLOR YELLOW; URINE GLUCOSE (UA) 3+ (NEGATIVE); URINE KETONE 2+ (NEGATIVE); URINE LEUK ESTERASE NEGATIVE (NEGATIVE); URINE NITRITE NEGATIVE (NEGATIVE); URINE PROTEIN TRACE (NEGATIVE)
[2024-03-18 03:20] LABS: INR 1.27 (0.83-1.09); PROTHROMBIN TIME (PATIENT) 14.5 SEC (9.7-13.0)
[2024-03-18 03:23] LABS: ACTIVATED PTT 36.3 SECONDS (25.2-36.5)
[2024-03-18 03:37] LABS: POTASSIUM 4.2 mmol/L (3.5-5.1)
[2024-03-18 03:39] LABS: CALCIUM 9.1 mg/dL (8.5-10.1)
[2024-03-18 03:40] LABS: ALBUMIN 2.8 g/dl (3.4-5.0); BLOOD UREA NITROGEN 7.2 mg/dL (7-18)
[2024-03-18 03:43] LABS: CREATININE 0.9 mg/dL (0.55-1.3)
[2024-03-18 03:44] LABS: BILIRUBIN,TOTAL 0.9 mg/dL (0.2-1); TOT PROT 7.2 g/dl (6.4-8.2)
[2024-03-18] MEDS: VANCOMYCIN PREMIX 1.5 GM 1,500 MG/300 ML BAG IVPB ONE (04:26)
[2024-03-18 05:19] LABS: BASO % 0.2 % (0-2.0); EOS % 0.1 % (0-4.5); HEMATOCRIT 32.7 % (32.4-45.2); HEMOGLOBIN 9.8 GM/dL (10.7-15.3); LYMPH % 12.6 % (8-40); MCH 20.5 pg (25.7-33.7); MCHC 29.9 g/dl (32.0-36.0); MEAN CELL VOLUME 68.6 fl (80-96); MEAN PLT VOLUME 7.2 fl (7.5-11.1); MONO % 9.9 % (3.8-10.2); NEUT % 77.2 % (42.8-82.8); PLATELET COUNT 472 10^3/uL (134-434); RBC 4.76 M/mm3 (3.60-5.2); RDW 19.8 % (11.6-15.6); WHITE BLOOD COUNT 16.1 K/mm3 (4.0-10.0)
[2024-03-18] MEDS: VANCOMYCIN HCL 1,500 MG in DEXTROSE 5%-WATER - 500 ML IVPB ONE (06:23)
[2024-03-18] MEDS ORDERED: PIPERACILLIN/TAZOB 4.5 GM 4.5 GM/100 ML BAG IVPB ONE (06:41)
[2024-03-18] MEDS: PIPERACILLIN/TAZOB 4.5 GM 4.5 GM in DEXTROSE 5%-WATER 100 ML IVPB ONE (07:08)
[2024-03-18] MEDS ORDERED: KETOROLAC TROMETHAMINE 15 MG/ML VIAL IVPUSH PRN (08:21)
[2024-03-18] MEDS ORDERED: ACETAMINOPHEN 500 MG TABLET (FP) PO PRN ×2 (08:22→11:24)
[2024-03-18] MEDS ORDERED: INSULIN REGULAR HUMAN 100 UNITS/ML *VIAL ONE (08:41)
[2024-03-18] MEDS: INSULIN REGULAR HUMAN 100 UNITS/ML *VIAL SQ ONE ×2 (08:50→14:06)
[2024-03-18] MEDS: LACTATED RINGERS SOLUTION 1,000 ML/1,000 ML INFUS.BAG IV SCH ×2 (09:15→11:29)
[2024-03-18] MEDS ORDERED: BUPIVACAINE HCL/PF 0.5% (5MG/ML) 10 ML VIAL ONE (10:09)
[2024-03-18] MEDS ORDERED: LIDOCAINE HCL 1%, 10 MG/ML (20ML VIAL) ONE (10:09)
[2024-03-18] MEDS ORDERED: PROPOFOL 40 ML ONE (10:23)
[2024-03-18] MEDS ORDERED: MIDAZOLAM HCL 2 MG/2 ML SINGLE DOSE VIAL ONE (10:23)
[2024-03-18] MEDS ORDERED: DEXMEDETOMIDINE HCL 200 MCG/2 ML IVPB ONE (10:38)
[2024-03-18] MEDS ORDERED: ONDANSETRON 4 MG/2 ML VIAL IVPUSH PRN ×2 (11:16→11:24)
[2024-03-18] MEDS ORDERED: LACTATED RINGERS SOLUTION 1,000 ML IV SCH (11:30)
[2024-03-18 11:42] LABS: ANISOCYTOSIS 1+; MACROCYTOSIS 0
[2024-03-18 13:46] VITALS: BMI 39.4
[2024-03-18] MEDS: CLINDAMYCIN 600MG PREMIX IVPB 600 MG/50 ML BAG IVPB SCH ×2 (14:06→14:37)
[2024-03-18] MEDS: amLODIPine BESYLATE 10 MG TABLET (FP) PO SCH (14:06)
[2024-03-18] MEDS: INSULIN ASPART SLIDING SCALE (NOVOLOG) 1 VIAL SQ SCH ×2 (14:07→17:25)
[2024-03-18] MEDS ORDERED: INSULIN ASPART SLIDING SCALE (NOVOLOG) 1 VIAL SQ ONE (17:24)
[2024-03-18] MEDS: INSULIN (LEVEMIR) 100 UNITS/ML UNITS SQ SCH (21:31)
[2024-03-18] MEDS: KETOROLAC TROMETHAMINE 15 MG/ML VIAL IVPUSH PRN (21:34)
[2024-03-19 09:18] LABS: BASO % 0.3 % (0-2.0); EOS % 0.2 % (0-4.5); HEMATOCRIT 30.6 % (32.4-45.2); HEMOGLOBIN 9.4 GM/dL (10.7-15.3); LYMPH % 16.6 % (8-40); MCH 20.9 pg (25.7-33.7); MCHC 30.8 g/dl (32.0-36.0); MEAN PLT VOLUME 6.8 fl (7.5-11.1); MONO % 8.8 % (3.8-10.2); NEUT % 74.1 % (42.8-82.8); PLATELET COUNT 447 10^3/uL (134-434); RDW 19.9 % (11.6-15.6); WHITE BLOOD COUNT 10.6 K/mm3 (4.0-10.0)
[2024-03-19 09:34] LABS: POTASSIUM 4.1 mmol/L (3.5-5.1)
[2024-03-19 09:36] LABS: CALCIUM 9.3 mg/dL (8.5-10.1)
[2024-03-19 09:37] LABS: BLOOD UREA NITROGEN 9.4 mg/dL (7-18)
[2024-03-19] MEDS ORDERED: KETOROLAC TROMETHAMINE 15 MG/ML VIAL IVPUSH PRN (09:37)
[2024-03-19 09:40] LABS: CREATININE 0.8 mg/dL (0.55-1.3)
[2024-03-19] MEDS: amLODIPine BESYLATE 10 MG TABLET (FP) PO SCH (09:45)
[2024-03-19] MEDS: HEPARIN NA (PORCINE) 5,000 UNITS/ML 1ML VIAL SQ SCH (14:32)
[2024-03-19] MEDS: ACETAMINOPHEN 500 MG TABLET (FP) PO PRN (16:44)
[2024-03-20] MEDS: oxyCODONE HCL 5 MG TABLET PO PRN (02:30)
[2024-03-20 09:11] LABS: BASO % 0.2 % (0-2.0); HEMATOCRIT 28.8 % (32.4-45.2); LYMPH % 27.2 % (8-40); MCHC 31.3 g/dl (32.0-36.0); MEAN CELL VOLUME 67.2 fl (80-96); MEAN PLT VOLUME 6.6 fl (7.5-11.1); MONO % 12.7 % (3.8-10.2); NEUT % 56.9 % (42.8-82.8); PLATELET COUNT 412 10^3/uL (134-434); RBC 4.28 M/mm3 (3.60-5.2); RDW 19.1 % (11.6-15.6); WHITE BLOOD COUNT 6.4 K/mm3 (4.0-10.0)
[2024-03-20] MEDS: MEROPENEM-0.9% SODIUM CHLORIDE 1 GM/50 ML BAG IVPB ONE (12:33)
[2024-03-20] MEDS: VANCOMYCIN PREMIX 1.5 GM 1,500 MG/300 ML BAG IVPB ONE (13:46)
[2024-03-20] MEDS: MEROPENEM-0.9% SODIUM CHLORIDE 1 GM/50 ML BAG IVPB SCH (18:03)
[2024-03-21] MEDS: VANCOMYCIN HCL IN 5 % DEXTROSE 1,500 MG/300 ML BAG IVPB SCH (01:24)
[2024-03-21 09:27] LABS: BASO % 0.6 % (0-2.0); EOS % 3.1 % (0-4.5); HEMATOCRIT 29.2 % (32.4-45.2); HEMOGLOBIN 9.1 GM/dL (10.7-15.3); LYMPH % 26.7 % (8-40); MEAN CELL VOLUME 67.7 fl (80-96); MEAN PLT VOLUME 6.7 fl (7.5-11.1); MONO % 12.7 % (3.8-10.2); NEUT % 56.9 % (42.8-82.8); PLATELET COUNT 432 10^3/uL (134-434); RBC 4.32 M/mm3 (3.60-5.2); RDW 19.4 % (11.6-15.6); WHITE BLOOD COUNT 6.9 K/mm3 (4.0-10.0)
[2024-03-21 10:05] LABS: ALBUMIN 2.4 g/dl (3.4-5.0); CALCIUM 8.9 mg/dL (8.5-10.1)
[2024-03-21 10:06] LABS: BLOOD UREA NITROGEN 7.6 mg/dL (7-18); MAGNESIUM 2.2 mg/dL (1.8-2.4)
[2024-03-21 10:09] LABS: CREATININE 0.7 mg/dL (0.55-1.3)
[2024-03-21 10:10] LABS: BILIRUBIN,TOTAL 0.4 mg/dL (0.2-1); TOT PROT 6.3 g/dl (6.4-8.2)
[2024-03-21 10:32] LABS: ANISOCYTOSIS 1+; MACROCYTOSIS 0
[2024-03-21] MEDS: BISACODYL 10 MG SUPP.RECT PR ONE (12:24)
[2024-03-21] MEDS: POLYETHYLENE GLYCOL (HEALTHYLAX) 3350 17 GM PACKET PO SCH (12:24)
[2024-03-21] MEDS: LISINOPRIL 10 MG TABLET PO SCH (17:41)
[2024-03-21] MEDS: ATORVASTATIN CA 10 MG TABLET (FP) PO SCH (22:11)
[2024-03-22] MEDS ORDERED: INSULIN (LEVEMIR) 100 UNITS/ML UNITS SQ ONE (07:36)
[2024-03-22] MEDS ORDERED: INSULIN ASPART SLIDING SCALE (NOVOLOG) 1 VIAL SQ ONE (07:36)
[2024-03-22 10:12] LABS: BASO % 0.2 % (0-2.0); EOS % 1.1 % (0-4.5); HEMOGLOBIN 11.4 GM/dL (10.7-15.3); LYMPH % 21.9 % (8-40); MCH 21.1 pg (25.7-33.7); MCHC 31.6 g/dl (32.0-36.0); MEAN CELL VOLUME 66.6 fl (80-96); MEAN PLT VOLUME 6.4 fl (7.5-11.1); MONO % 7.2 % (3.8-10.2); NEUT % 69.6 % (42.8-82.8); PLATELET COUNT 544 10^3/uL (134-434); RDW 19.6 % (11.6-15.6)
[2024-03-22 10:25] LABS: POTASSIUM 4.4 mmol/L (3.5-5.1)
[2024-03-22 10:27] LABS: ALBUMIN 2.6 g/dl (3.4-5.0); BLOOD UREA NITROGEN 9.7 mg/dL (7-18); CALCIUM 9.3 mg/dL (8.5-10.1); MAGNESIUM 2.2 mg/dL (1.8-2.4)
[2024-03-22 10:31] LABS: CREATININE 0.7 mg/dL (0.55-1.3)
[2024-03-22 10:32] LABS: BILIRUBIN,TOTAL 0.4 mg/dL (0.2-1)
[2024-03-22 10:34] LABS: CHOLESTEROL 255 mg/dL (50-200)
[2024-03-22 10:35] LABS: LDL CHOLESTEROL (ONLY SJRH) 174 mg/dL (5-100)
[2024-03-22 10:37] LABS: HDL CHOLESTEROL 34 mg/dL (40-60)
[2024-03-22] MEDS ORDERED: MAG HYDROX/AL HYDROX/SIMETH -MYLANTA- ORAL SUSPENSION PO PRN (14:48)
[2024-03-22] MEDS ORDERED: POLYETHYLENE GLYCOL (HEALTHYLAX) 3350 17 GM PACKET PO PRN (14:48)
[2024-03-22] MEDS: MAG HYDROX/AL HYDROX/SIMETH 30 ML UNIT-DOSE CUP PO PRN (15:03)
[2024-03-22] MEDS ORDERED: ONDANSETRON 4 MG/2 ML VIAL IVPUSH PRN (18:33)
[2024-03-22] MEDS: ATORVASTATIN CA 40 MG TABLET (FP) PO SCH (22:04)
[2024-03-22 22:27] VITALS: RESP 20
[2024-03-23] MEDS: ERTAPENEM SODIUM 1 GM in SODIUM CHLORIDE 50 ML IVPB SCH (02:59)
[2024-03-23 09:10] LABS: BASO % 0.7 % (0-2.0); EOS % 1.3 % (0-4.5); HEMATOCRIT 32.9 % (32.4-45.2); MCH 20.5 pg (25.7-33.7); MCHC 30.4 g/dl (32.0-36.0); MEAN CELL VOLUME 67.6 fl (80-96); MEAN PLT VOLUME 6.6 fl (7.5-11.1); MONO % 6.9 % (3.8-10.2); NEUT % 67.1 % (42.8-82.8); PLATELET COUNT 541 10^3/uL (134-434); RBC 4.86 M/mm3 (3.60-5.2); RDW 20.2 % (11.6-15.6); WHITE BLOOD COUNT 10.2 K/mm3 (4.0-10.0)
[2024-03-23 09:31] LABS: POTASSIUM 4.4 mmol/L (3.5-5.1)
[2024-03-23 09:48] LABS: CALCIUM 9.2 mg/dL (8.5-10.1)
[2024-03-23 09:49] LABS: ALBUMIN 2.5 g/dl (3.4-5.0); BLOOD UREA NITROGEN 12.2 mg/dL (7-18)
[2024-03-23 09:52] LABS: CREATININE 0.8 mg/dL (0.55-1.3)
[2024-03-23 09:53] LABS: TOT PROT 6.5 g/dl (6.4-8.2)
[2024-03-23 09:54] LABS: BILIRUBIN,TOTAL 0.5 mg/dL (0.2-1)
[2024-03-23 09:59] VITALS: BP 107/65; PULSE 94; TEMP 98
== END 2024-03-23 15:09 | disposition home health service (06) | DRG 383 ==
LOC: JER 01:49 → JERBED 07:32 → OBSVTOIN 08:18 → J8W 12:21
PROVIDERS: ADMIT Internal Medicine; ATTEND Nurse Practitioner Acute Care
PROC: 0Y9C00Z Drainage of Right Upper Leg with Drainage Device, Open Approach (ICD-10-PCS; principal; 2024-03-18 10:00)
DX: L02.415 Cutaneous abscess of right lower limb (principal); Z68.41 Body mass index [BMI] 40.0-44.9, adult; E11.65 Type 2 diabetes mellitus with hyperglycemia; E66.01 Morbid (severe) obesity due to excess calories; I10 Essential (primary) hypertension; E78.5 Hyperlipidemia, unspecified; R50.9 Fever, unspecified; R60.9 Edema, unspecified; Z16.12 Extended spectrum beta lactamase (ESBL) resistance; D72.829 Elevated white blood cell count, unspecified
CPT/HCPCS: 36415; 73701-TC-RT; 80048; 80053; 80061; 81003; 82962; 83036; 83605; 83735; 84703; 85025; 85610; 85730; 86140; 86850; 86900; 86901; 87040; 87070; 87076; 87077; 87086; 87186; 87205; 93005; 93010; 94760; 99285-25; G0378; J1644; Q9967

== ENCOUNTER 2024-03-24 12:22 | Day surgery (SDC) | payer OTHER ==
[2024-03-24] MEDS: ERTAPENEM SODIUM 1 GM in SODIUM CHLORIDE 50 ML IVPB ONE (13:01)
[2024-03-24 13:34] VITALS: BP 118/82; PULSE 90; RESP 18; TEMP 98.7
== END 2024-03-24 13:34 | disposition home or self-care (01) ==
LOC: FINFUSION 12:22 → FM/S 12:25 → FINFUSION 13:34
PROVIDERS: ATTEND Internal Medicine Infectious Disease
DX: L02.415 Cutaneous abscess of right lower limb (principal); Z16.12 Extended spectrum beta lactamase (ESBL) resistance
CPT/HCPCS: 96365

== ENCOUNTER 2024-03-25 12:21 | Day surgery (SDC) | payer OTHER ==
[2024-03-25 13:03] VITALS: TEMP 99.1
[2024-03-25] MEDS: ERTAPENEM SODIUM 1 GM in SODIUM CHLORIDE 50 ML IVPB ONE (13:09)
[2024-03-25 13:49] VITALS: BP 140/94; PULSE 82; RESP 18
== END 2024-03-25 14:33 | disposition home or self-care (01) ==
LOC: FINFUSION 12:21 → FM/S 12:22 → FINFUSION 14:33
PROVIDERS: ATTEND Internal Medicine Infectious Disease
DX: L02.415 Cutaneous abscess of right lower limb (principal); Z16.12 Extended spectrum beta lactamase (ESBL) resistance
CPT/HCPCS: 96365

== ENCOUNTER 2024-03-26 12:08 | Day surgery (SDC) | payer OTHER ==
[2024-03-26] MEDS: ERTAPENEM SODIUM 1 GM in DEXTROSE 5%-WATER - 50 ML IVPB ONE (12:35)
[2024-03-26 13:26] VITALS: BP 122/72; PULSE 94; RESP 18; TEMP 98.6
== END 2024-03-26 13:26 | disposition home or self-care (01) ==
LOC: FINFUSION 12:08 → FM/S 12:10 → FINFUSION 13:26
PROVIDERS: ATTEND Internal Medicine Infectious Disease
DX: L02.415 Cutaneous abscess of right lower limb (principal); Z16.12 Extended spectrum beta lactamase (ESBL) resistance
CPT/HCPCS: 96365

== ENCOUNTER 2024-03-27 12:16 | Day surgery (SDC) | payer OTHER ==
[2024-03-27] MEDS: ERTAPENEM SODIUM 1 GM in SODIUM CHLORIDE 50 ML IVPB ONE (12:50)
[2024-03-27 13:29] VITALS: BP 115/78; PULSE 85; RESP 16; TEMP 98.2
== END 2024-03-27 13:29 | disposition home or self-care (01) ==
LOC: FINFUSION 12:16 → FM/S 12:18 → FINFUSION 13:29
PROVIDERS: ATTEND Internal Medicine Infectious Disease
DX: L02.415 Cutaneous abscess of right lower limb (principal); Z16.12 Extended spectrum beta lactamase (ESBL) resistance
CPT/HCPCS: 96365

== ENCOUNTER 2024-03-28 10:02 | Day surgery (SDC) | payer OTHER ==
[2024-03-28 10:27] VITALS: RESP 16; TEMP 98.4
[2024-03-28] MEDS: ERTAPENEM SODIUM 1 GM in SODIUM CHLORIDE 50 ML IVPB SCH (10:37)
[2024-03-28 11:23] VITALS: BP 151/97; PULSE 75
== END 2024-03-28 11:24 | disposition home or self-care (01) ==
LOC: FINFUSION 10:02 → FM/S 10:03 → FINFUSION 11:24
PROVIDERS: ATTEND Internal Medicine Infectious Disease
DX: L02.415 Cutaneous abscess of right lower limb (principal); Z16.12 Extended spectrum beta lactamase (ESBL) resistance
CPT/HCPCS: 96365

== ENCOUNTER 2024-03-29 14:40 | Day surgery (SDC) | payer OTHER ==
[2024-03-29] MEDS: ERTAPENEM SODIUM 1 GM in SODIUM CHLORIDE 50 ML IVPB ONE (15:06)
[2024-03-29 16:02] VITALS: BP 130/85; PULSE 95; RESP 16; TEMP 98.9
== END 2024-03-29 16:03 | disposition home or self-care (01) ==
LOC: FINFUSION 14:40 → FM/S 14:41 → FINFUSION 16:03
PROVIDERS: ATTEND Internal Medicine Infectious Disease
DX: L02.415 Cutaneous abscess of right lower limb (principal); Z16.12 Extended spectrum beta lactamase (ESBL) resistance
CPT/HCPCS: 96365

== ENCOUNTER 2024-03-30 12:10 | Day surgery (SDC) | payer OTHER ==
[2024-03-30] MEDS: ERTAPENEM SODIUM 1 GM in SODIUM CHLORIDE 50 ML IVPB ONE (12:45)
[2024-03-30 13:31] VITALS: BP 128/72; PULSE 70; RESP 18; TEMP 98.2
== END 2024-03-30 13:31 | disposition home or self-care (01) ==
LOC: FINFUSION 12:10 → FM/S 12:12 → FINFUSION 13:31
PROVIDERS: ATTEND Internal Medicine Infectious Disease
DX: L02.415 Cutaneous abscess of right lower limb (principal); Z16.12 Extended spectrum beta lactamase (ESBL) resistance
CPT/HCPCS: 96365